=== PATIENT | male | born 1985 | race Caucasian/White ===

== ENCOUNTER 2016-10-22 09:34 | Emergency (ER) | payer MEDICAID ==
[2016-10-22] MEDS ORDERED: SULFAMETH/TRIMETH DS 800/160 MG TABLET PO STA (11:28)
[2016-10-22] MEDS ORDERED: IBUPROFEN 600 MG TABLET PO STA (11:28)
[2016-10-22] MEDS ORDERED: IBUPROFEN 600 MG TABLET PO ONE (11:33)
[2016-10-22] MEDS ORDERED: SULFAMETH/TRIMETH DS 800/160 MG TABLET PO ONE (11:34)
== END 2016-10-22 11:54 | disposition home or self-care (01) ==
DX: L03.011 Cellulitis of right finger (principal)
CPT/HCPCS: 99283; A9270

== ENCOUNTER 2017-02-17 22:51 | Emergency (ER) | payer MEDICAID ==
[2017-02-17 22:55] VITALS: BP 135/80
[2017-02-18] MEDS ORDERED: BUPIVACAINE 0.5% PF 30 ML VIAL ONE (00:12)
--- NOTE | 2017-02-18 01:11 | ED Physician Documentation ---
PD HPI LOWER EXT INJURY - Stated complaint Stated Complaint: RT TOENAIL PX - Chief complaint Chief Complaint: Ext Problem - History obtained from History obtained from: Patient - History of Present Illness PD HPI LOW EXT INJURY LOCATION: Right, Toe (great) Type of injury: Blunt / blow Where injury occurred: Home Timing - onset: Today Timing - duration: Hours Timing - details: Abrupt onset, Still present Improved by: Rest, Immobilization Worsened by: Moving, Palpating Associated symptoms: Swelling Similar symptoms before: Diagnosis (ingrown toenail.) Recently seen: Not recently seen - Additional information Additional information: 31-year-old male has had an ingrown toenail on the right side for the past month and he has had increasing symptoms today he bumped the toe and has had unrelenting pain he would like to have the toenail sectioned. Review of Systems Constitutional: denies: Fever Respiratory: denies: Cough GI: denies: Vomiting Skin: denies: Rash Musculoskeletal: reports: Extremity pain, Extremity swelling, Pain with weight bearing Neurologic: denies: Generalized weakness, Focal weakness, Numbness PD PAST MEDICAL HISTORY - Past Medical History Past Medical History: No Endocrine/Autoimmune: None - Past Surgical History Past Surgical History: No - Present Medications Home Medications: Ambulatory Orders Medication Instructions Recorded Confirmed No Known Home Medications [No 02/17/17 02/17/17 Known Home Medications] - Allergies Allergies/Adverse Reactions: Allergies Allergy/AdvReac Type Severity Reaction Status Date / Time codeine Allergy Unknown Verified 02/17/17 23:08 erythromycin base Allergy Unknown Verified 02/17/17 23:08 - Social History Does the pt smoke?: No Smoking Status: Never smoker Does the pt drink ETOH?: No Does the pt have substance abuse?: No - Immunizations Immunizations are current?: Yes - POLST Patient has POLST: No PD ED PE NORMAL - Vitals Vital signs reviewed: Yes (hypertensive ) - General General: Alert and oriented X 3, No acute distress, Well developed/nourished - HEENT HEENT: Atraumatic, PERRL - Respiratory Respiratory: No respiratory distress - Derm Derm: Normal color, Warm and dry, No rash - Extremities Extremities: No deformity, No edema, Other (There is an ingrown toenail on the right great toe medially and this is not inflamed it is tender along the medial surface.) - Neuro Neuro: Alert and oriented X 3, No motor deficit, No sensory deficit, Normal speech - Psych Psych: Normal mood, Normal affect Results - Vitals Vitals: Vital Signs - 24 hr 02/17/17 22:53 Temperature 35.7 C L Heart Rate 72 Respiratory 16 Rate Blood Pressure 135/80 H O2 Saturation 97 Oxygen O2 Source Room air Procedures - General procedure General procedure: Ingrown toenail removal:.With use of 0.5% bupivacaine a digital block is performed to the right great toe. The toe was cleansed with Hibiclens and draped in a sterile fashion a sectioning plier was used to section the toenail this is then manually removed with a forceps and the toe was then dressed. PD MEDICAL DECISION MAKING - ED course Complexity details: considered differential, d/w patient ED course: 31-year-old male with a noninflamed ingrown toenail has a ingrown toenail sectioned here in the emergency department. He appears to tolerate this well. Departure - Departure Disposition: 01 Home, Self Care Clinical Impression: Ingrown nail of great toe of right foot Condition: Stable Instructions: ED Ingrown Toenail Excised Follow-Up: [facility] [Provider Group] [facility] [Provider Group] Comments: Today in the Emergency Department your blood pressure was elevated. This can happen from the stress of the visit itself, from a current illness or circumstance or from uncontrolled hypertension. If you take blood pressure medications take your usual mediations, have your blood pressure re-checked in an appropriate setting and follow up any elevation with your primary care doctor. Discharge Date/Time: 02/18/17 01:16
== END 2017-02-18 01:16 | disposition home or self-care (01) ==
LOC: ED 22:51
DX: L60.0 Ingrowing nail (principal); R03.0 Elevated blood-pressure reading, without diagnosis of hypertension
CPT/HCPCS: 11765; 99282; 99283

== ENCOUNTER 2017-07-18 10:46 | Emergency (ER) | payer MEDICAID ==
--- NOTE | 2017-07-18 11:31 | XRAY Preliminary Report ---
Exam: XR HAND 3 VIEW RT IMPRESSION: No acute bony abnormality identified in the right hand. [facility] SITE ID: [id number]
--- NOTE | 2017-07-18 11:33 | XRAY Report ---
EXAM: RIGHT HAND RADIOGRAPHY EXAM DATE: 07/18/2017 11:11 AM. CLINICAL HISTORY: Trauma. Hand injury while demolishing a desk. COMPARISON: None. TECHNIQUE: 3 views. FINDINGS: Bones: Normal. No fractures or bone lesions. Joints: Normal. No subluxations. Soft Tissues: Unremarkable. IMPRESSION: No acute bony abnormality identified in the right hand. [facility] Referring Provider Line: [phone] SITE ID: [id number]
--- NOTE | 2017-07-18 12:17 | ED Physician Documentation ---
PD HPI UPPER EXT INJURY - Stated complaint Stated Complaint: hand injury - Chief complaint Chief Complaint: Ext Problem - History obtained from History obtained from: Patient - History of Present Illness Location: Right, Hand Where injury occurred: Home Timing - onset: Today Timing - details: Abrupt onset (he was attempting to break a thin board furniture piece by punching it and hurt hand.) Worsened by: Moving, Palpating (over lateral knuckles 3-5.) Associated symptoms: Swelling, Discolored (some bruising). No: Weakness, Numbness Similar symptoms before: Has not had sx before Recently seen: Not recently seen Review of Systems Skin: denies: Abrasion (s), Laceration (s) Neurologic: denies: Focal weakness, Numbness PD PAST MEDICAL HISTORY - Past Medical History Past Medical History: No Endocrine/Autoimmune: None - Past Surgical History Past Surgical History: No - Present Medications Home Medications: Ambulatory Orders Medication Instructions Recorded Confirmed No Known Home Medications [No 02/17/17 07/18/17 Known Home Medications] - Allergies Allergies/Adverse Reactions: Allergies Allergy/AdvReac Type Severity Reaction Status Date / Time codeine Allergy Unknown Verified 07/18/17 10:54 erythromycin base Allergy Unknown Verified 07/18/17 10:54 - Social History Does the pt smoke?: No Smoking Status: Never smoker Does the pt drink ETOH?: No Does the pt have substance abuse?: No - Immunizations Immunizations are current?: Yes - POLST Patient has POLST: No PD ED PE NORMAL - Vitals Vital signs reviewed: Yes - General General: Alert and oriented X 3, No acute distress, Well developed/nourished - Derm Derm: Normal color, Warm and dry - Extremities Extremities: Other (right hand with swelling and tender dorsal knuckles 3-5. Normal extension and felxion but hurts on ROM.) - Neuro Neuro: No motor deficit, No sensory deficit Results - Vitals Vitals: Oxygen O2 Source Room air - Rads (name of study) hand Radiology: Prelim report reviewed (no fractures. ) Procedures - Splint (location) ulnar gutter hand Splint applied by: Tech Type of splint: Ulnar gutter Other: Patient tolerated well, No complications, Neurovascular intact, Good alignment PD MEDICAL DECISION MAKING - ED course Complexity details: reviewed results, considered differential, d/w patient Departure - Departure Disposition: 01 Home, Self Care Clinical Impression: Hand contusion Qualifiers: Encounter type: initial encounter Laterality: right Qualified Code(s): S60.221A - Contusion of right hand, initial encounter Condition: Stable Record reviewed to determine appropriate education?: Yes Instructions: ED Contusion Hand Comments: Use a splint for comfort to protect the area and reduce motion. Discontinue use when it is feeling better enough. Ice elevate and rest the hand today to reduce swelling. Use some ibuprofen 3 times a day for the next 5 or 6 days. Add Tylenol if needed for pain. Recheck if not better over a week or so. Progress use of the hand as able. Discharge Date/Time: 07/18/17 13:10
[2017-07-18] MEDS ORDERED: ACETAMINOPHEN 325 MG TABLET PO STA (12:28)
[2017-07-18] MEDS ORDERED: IBUPROFEN 800 MG TABLET PO STA (12:28)
[2017-07-18] MEDS ORDERED: ACETAMINOPHEN 325 MG TABLET PO ONE (12:41)
[2017-07-18] MEDS ORDERED: IBUPROFEN 800 MG TABLET PO ONE (12:42)
[2017-07-18 13:12] VITALS: BP 130/84
== END 2017-07-18 13:10 | disposition home or self-care (01) ==
LOC: ED 10:46
DX: S60.221A Contusion of right hand, initial encounter (principal); W22.09XA Striking against other stationary object, initial encounter; Y92.009 Unspecified place in unspecified non-institutional (private) residence as the place of occurrence of the external cause; R22.9 Localized swelling, mass and lump, unspecified
CPT/HCPCS: 29105; 73130; 99282; 99283; A9270

== ENCOUNTER 2017-08-13 10:44 | Emergency (ER) | payer MEDICAID ==
[2017-08-13 10:50] VITALS: BP 138/92
[2017-08-13] MEDS ORDERED: MECLIZINE 12.5 MG TABLET PO STA (11:16)
--- NOTE | 2017-08-13 12:36 | ED Physician Documentation ---
History of Present Illness - Stated complaint Stated Complaint: DIZZY - Chief complaint Chief Complaint: General - Additonal information Additional information: 31 male healthy recent URI now with vertigo, severe with moving head luis enrique leaning back head feels cloudy and he feels clumsy uncoordinated' but no focal numbness weakness vision hearing speech abn Review of Systems Constitutional: denies: Fever Nose: reports: Congestion Respiratory: reports: Cough (better) Neurologic: reports: Other (dizzy). denies: Focal weakness, Numbness Endocrine: denies: Easy bruising / bleeding Immunocompromised: denies: Immunocompromised PD PAST MEDICAL HISTORY - Past Medical History Past Medical History: No Endocrine/Autoimmune: None - Past Surgical History Past Surgical History: No - Present Medications Home Medications: Ambulatory Orders Medication Instructions Recorded Confirmed Meclizine [Antivert] 25 mg PO Q6H PRN #20 tablet 08/13/17 - Allergies Allergies/Adverse Reactions: Allergies Allergy/AdvReac Type Severity Reaction Status Date / Time codeine Allergy Unknown Verified 07/18/17 10:54 erythromycin base Allergy Unknown Verified 08/13/17 10:50 - Social History Does the pt smoke?: No Smoking Status: Never smoker Does the pt drink ETOH?: No Does the pt have substance abuse?: No - Immunizations Immunizations are current?: Yes - POLST Patient has POLST: No PD ED PE NORMAL - Vitals Vital signs reviewed: Yes - HEENT HEENT: PERRL (horiz nystagmus R > L), Ears normal - Neck Neck: Supple, no meningeal sign - Cardiac Cardiac: RRR - Respiratory Respiratory: No respiratory distress, Clear bilaterally - Neuro Neuro: Alert and oriented X 3, group art supervisor 2-12 intact, No motor deficit, No sensory deficit, Normal speech Results - Vitals Vitals: Vital Signs - 24 hr 08/13/17 10:47 Temperature 36.2 C L Heart Rate 84 Respiratory 16 Rate Blood Pressure 138/92 H O2 Saturation 98 Oxygen O2 Source Room air PD MEDICAL DECISION MAKING - ED course ED course: better with meclizine doubt central process d/w pt Departure - Departure Disposition: 01 Home, Self Care Clinical Impression: Vertigo Condition: Good Instructions: ED Vertigo Unspecified Prescriptions: Meclizine [Antivert] 25 mg PO Q6H PRN #20 tablet PRN Reason: Dizziness Comments: The dizziness (aka vertigo) seems to be due to an inner ear problem, likely secondary to your recent upper respiratory infection. I do not think it is a brain problem or a stroke. The symptoms should gradually get better on their own but the medication I prescribed and the exercises I printed for you should help as well Follow up with your PMD if not better by next week. Return to the ER if worse
== END 2017-08-13 12:45 | disposition home or self-care (01) ==
LOC: ED 10:44
DX: R42 Dizziness and giddiness (principal)
CPT/HCPCS: 99283; A9270